=== PATIENT | male | born 1955 | race Caucasian/White ===

== ENCOUNTER → 2016-11-24 | Day surgery (SDC) | payer OTHER ==
--- NOTE | 2016-11-23 13:53 | MH ---
cc: SARAH INFANTE M.D. DATE OF ADMISSION: 11/24/2016 ADMISSION DIAGNOSIS Herniated nucleus pulposus, lumbar spine. HISTORY OF PRESENT ILLNESS This patient is a 61-year-old male who has evidence of a large disc herniation centrally and to the left at L5-S1. The patient has a significant left L5 and S1 radiculopathy. He has been treated conservatively but is having progressive weakness. He presents now for surgical treatment. PAST MEDICAL HISTORY, SOCIAL HISTORY, FAMILY HISTORY See attached notes. PHYSICAL EXAMINATION VITAL SIGNS: 6 feet 1 inch, 195 pounds, BMI 25.7. Blood pressure 142/86. HEENT: Normocephalic, atraumatic. Pupils equal, round, reactive to light and accommodation. Extraocular movements intact. NECK: Supple. CHEST: Clear. HEART: Regular rate and rhythm. ABDOMEN: Soft, nontender. Normoactive bowel sounds. MUSCULOSKELETAL: Thoracolumbar spine restricted motion, pain with range of motion. Straight leg raise is positive on the left, negative on the right. Motor examination shows weakness of the left gastrocsoleus. Straight leg raise is positive at 60 degrees. IMPRESSION 1. Herniated nucleus ptosis, L5-S1 left. 2. Left S1 radiculopathy PLAN Lumbar laminectomy left L5, S1, lateral recess decompression, resection herniated nucleus pulposus, use of dilation port and microscope. CONSENT There are risks of surgery including infection, bleeding, loss of motion, continued pain, need for further surgery, neurologic and vascular injury. The patient understands these issues and wishes to press on with surgery as outlined above. MD SHERIN Ohara/RUBINA /1:20 PM /1:44 PM
[~2016-11-24] VITALS: Ht 185.4 cm; Wt 89.6 kg
[~2016-11-24] MED LIST: ACETAMINOPHEN 1000 MG/100 ML VIAL IV ONE; ACETAMINOPHEN/HYDROcodone 325 MG/7.5 MG TAB PO PRN; ARTIFICIAL TEARS OPTH OINT 3.5 APPLIC/3.5 GM TUBO ONE; BETAMETHASONE SOD PHOS/ACETATE SUSP 30 MG/5 ML VIAL ONE; BUPIVACAINE/EPINEPHRINE 0.25% 50 ML VIAL ONE; CHLORHEXIDINE GLUCONATE 2 % 1 PACK (2 CLOTHS) TOPICAL PRN; DEXAMETHASONE SOD PHOS 4 MG/ML VIAL ONE; DO NOT ADM ANY ANTICOAGULANT DRUGS PRN; GELFOAM SIZE 100 ONE; GENTAMICIN SULFATE 80 MG/2 ML VIAL ONE; HYDR-3288 PO; INSULIN HUMAN REGULAR 1,000 UNITS/10 ML VIAL SQ PRN; KETOROLAC TROMETHAMINE 60 MG/2 ML (IM) VIAL IM ONE; LACTATED RINGER'S 1000 ML INJ 1,000 ML IV ONE; LACTATED RINGER'S 1000 ML IV PRN; METOPROLOL TARTRATE 25 MG TAB PO PRN; MIDAZOLAM HCL 2 MG/2 ML VIAL ONE; MORPHINE SULFATE 4 MG/ML INJ IV PUSH PRN; NEOSTIGMINE 3 MG/3 ML SYR IV ONE; ONDANSETRON HCL 4 MG/2 ML VIAL IV PUSH ONE; OXYC-360 PO; PHENYLEPH/NS 1000 MCG/10 ML SYR IV ONE; POVIDONE IODINE 5% (ANTISEPSIS KIT) 4 APPLICATIONS EACH NARE PRN; POVIDONE IODINE 7.5% SCRUB 118 ML BOTTLE TOPICAL SCH; PROPOFOL 200 MG/20 ML AMP IV ONE; SODIUM CHLORID 0.9% 500 ML IV PRN; SODIUM CHLORIDE FLUSH BID IV FLUSH SCH; SODIUM CHLORIDE FLUSH PRN IV FLUSH; ceFAZolin 2 GM PREMIX 50 ML IV SCH; ePHEDrine/NS 25 MG/5 ML SYR IV ONE; fentaNYL CITRATE 250 MCG/5 ML AMP ONE
[2016-11-24 06:48] VITALS: BP 169/105; PULSE 63; RESP 18; TEMP 97.6; O2SAT 98
--- NOTE | 2016-11-24 10:00 | PD.OP ---
cc: German Bernstein MD Operative Report Date of Surgery: Nov 24, 2016 Preoperative Diagnosis: Herniated nucleus pulposus L5-S1, left, extruded. Left S1 radiculopathy Postoperative Diagnosis: Same Procedure: Lumbar laminectomy left L5, S1, lateral recess decompression, resection herniated nucleus pulposus Anesthesia: Gen. Surgeon: German Bernstein Lining Setter(s): YELENA Perez Operation and Findings: EBL: 50 cc INDICATION: This patient is a 61-year-old male with significant left leg pain and weakness associated with a disc herniation L5-S1 to the left that is extruded. He presents for surgical treatment. NOTE: Lucy Perez PA-C was present for the entire surgical procedure as my first cook. In my medical opinion her skill and care was necessary for the proper management of this patient. PROCEDURE: The patient was brought to the operating room and anesthetized in the supine position. The patient was rolled to a prone position on a Saw frame on a Mathieu table. All pressure points were protected in the back was scrubbed with alcohol followed by Hibiclens followed by ChloraPrep and draped sterilely. A timeout was done and antibiotics were given. AP and lateral radiographic images were used to identify the proper levels and perform skin markings. We started from the left side at the 5 S1 level. A paramedian incision was made and an off-midline fascial incision was made. A dilating system was placed down to the interlaminar space and held provisionally to the side of the table. The microscope was brought into the field. A high-speed bur under the microscope was used to perform a predominantly left-sided laminectomy from that side. A lateral recess decompression on that side was accomplished using straight and angled Kerrison punches. A partial medial facetectomy was accomplished. There was a large disc herniation at the disc space and extending below the disc space with significant left S1 nerve root compression. The crossing and exiting nerve roots were completely decompressed. The wound was irrigated copiously. A small piece of Gelfoam with Celestone was placed into the epidural space. Hemostasis was controlled. The deep fascia was approximated with interrupted 0 Vicryl suture subcutaneous suture with 2-0 Vicryl suture and skin with running intradermal 3-0 Vicryl followed by Dermabond. A field block with local anesthesia was utilized. A sterile dressing was applied. The sponge count and needle counts and instrument counts were all correct. The patient tolerated the procedure well as taken to the recovery room in satisfactory condition. FINDINGS: There was a large disc herniation centrally into the left. The facet joint at this level appears mildly unstable. German Bernstein MD Nov 24, 2016 10:00
[2016-11-24 11:46] VITALS: BP 140/89; PULSE 71; RESP 20; TEMP 97.5; O2SAT 98
--- NOTE | 2016-11-24 15:01 | EKG ---
Date Performed: 11/24/2016 Time Performed: 07:02:22 PTAGE: 61 years EKG: Sinus rhythm POSSIBLE LATERAL MYOCARDIAL INFARCTION , OF INDETERMINATE AGE ABNORMAL ECG PREVIOUS TRACING : 02/08/2008 12.33 DOCTOR: Faetmeh Taylor Interpretating Date/Time 11/24/2016 14:56:03
--- NOTE | 2016-11-24 18:13 | RADRPT ---
EXAM DATE/TIME: 11/24/2016 09:05 [facility] COMPARISON: No previous studies available for comparison. INDICATIONS : L5-S1 Laminectomy. MEDICAL HISTORY : Hypertension. Smoker. SURGICAL HISTORY : None. ENCOUNTER: Initial ACUITY: 1 day PAIN SCORE: Non-responsive. LOCATION: Lumbar spine. FINDINGS: A single lateral view of the lumbar spine was performed. A surgical instrument is projected over the posterior elements at the lumbosacral junction. CONCLUSION: 1. Surgical instrument projects over posterior elements at lumbosacral junction. Desean Wallace MD on November 24, 2016 at 18:10 Board Certified Radiologist. This report was verified electronically.
== END | disposition home or self-care (01) ==
LOC: HSDC 06:07
PROVIDERS: ATTEND Orthopaedic Surgery Orthopaedic Surgery of the Spine
DX: M51.26 Other intervertebral disc displacement, lumbar region (principal); R94.31 Abnormal electrocardiogram [ECG] [EKG]; Z01.810 Encounter for preprocedural cardiovascular examination
CPT/HCPCS: 00630; 63047; 72020; 76000; 93005; J0131; J0690; J0702; J1100; J1580; J1885; J2250; J2370; J2405; J2710; J3010; J7120